=== PATIENT | female | born 1985 | race Caucasian/White ===

== ENCOUNTER 2025-01-06 15:10 | Emergency (ER) | payer MEDICAID, SELFPAY ==
[2025-01-06 15:13] VITALS: BP 121/72; PULSE 141; RESP 16; TEMP 37.1; O2SAT 98
[2025-01-06 15:36] VITALS: PULSE 141; RESP 16; TEMP 37.1
[2025-01-06 15:38] LABS: Bilirubin Negative (Negative); Blood Moderate (Negative); Clarity Clear (Clear); Glucose Negative (Negative); Ketones Negative (Negative); Leukocyte Esterase Negative (Negative); Nitrite Negative (Negative); Urobilinogen 0.2 mg/dL (Up to 0.2)
--- NOTE | 2025-01-06 15:38 | ED.GENADUL_ITS ---
Discharge Plan Disposition Patient Disposition: Home Condition: Stable Discharge Details Clinical Impression: Pharyngitis, streptococcal Primary Care Provider: Unknown,Unknown ED Provider: Abbe Smith Home Meds and New Rx's Prescriptions: New amoxicillin 875 mg tablet 875 mg PO BID 10 Days Qty: 19 0RF Discharge Instructions Additional Instructions: You are positive for strep. Follow-up with your primary care provider if not improving within a week. If you feel more ill or have severe worsening pain or inability to swallow liquids return to the emergency department for reevaluation HPI General Mode of arrival: EMS . Date/Time Provider Initiated Documentation: 01/06/25 15:12 . Limitations to Documentation: no limitations . Information obtained by: patient . History of Present Illness 39 year old F presents to the emergency department with the chief complaint of fever, described as moderate, Patient started experiencing this day(s) (2) and it h as been constant. other things that improve symptom(s), (tylenol) No exacerbating factors reported . Patient notes fever/chills; denies chest pain, cough, nausea/vomiting and shortness of breath. Related Data Home Medications ?Medication ?Instructions ?Recorded ?Confirmed amoxicillin 875 mg tablet 875 mg PO BID 10 days #19 tabs 01/06/25 Previous Rx's ?Medication ?Instructions ?Recorded amoxicillin 875 mg tablet 875 mg PO BID 10 days #19 tabs 01/06/25 Allergies Allergy/AdvReac Type Severity Reaction Status Date / Time No Known Allergies Allergy Unverified 01/06/25 15:21 General Stated Complaint: Fever ANDREI: 3 Review of Systems All systems reviewed & are unremarkable except as noted in HPI and below Constitutional Constitutional: Reports chills and Reports fever(s) ENT Ears, Nose, Mouth, and Throat: Reports sore throat Cardiovascular Cardiovascular: Denies chest pain and Denies dyspnea Respiratory Respiratory: Denies cough and Denies dyspnea Gastrointestinal Gastrointestinal: Denies abdominal pain, Denies nausea and Denies vomiting Psychiatric Psychiatric: Denies depression Exam Const General: no acute distress Orientation: alert HENMT Head: normal to inspection Ears: external ears normal General nose exam: external nose normal Mouth: moist mucous membranes Throat: uvula midline and posterior oropharynx abnormal erythema; no exudates Eyes General: appearance normal, both eyes and all related structures Neck Neck: normal visual inspection Resp Effort & Inspection: normal respiratory effort and able to speak in complete sentences Auscultation: clear to auscultation bilaterally Cardio Jugular venous pressure: no JVD Rate: regular rate Heart Sounds: no murmurs GI Palpation: soft and nontender Skin General skin exam: no rashes or lesions noted Neuro General: patient alert and patient oriented x3 Extrem General: normal to inspection Psych Mental Status: mental status grossly normal Course Vital Signs Vital signs: Vital Signs Temperature 37.1 C 01/06/25 15:13 Pulse 141 H 01/06/25 15:13 Respiratory Rate 16 01/06/25 15:13 Blood Pressure 121/72 01/06/25 15:13 Pulse Oximetry 98 01/06/25 15:13 Temperature 37.1 C 01/06/25 15:36 Temperature Source Oral 01/06/25 15:36 Pulse 141 H 01/06/25 15:36 Respiratory Rate 16 01/06/25 15:36 Blood Pressure 121/72 01/06/25 15:13 Blood Pressure Position Sitting 01/06/25 15:13 Pulse Oximetry 98 01/06/25 15:13 Oxygen Delivery Method Room Air 01/06/25 15:13 Oxygen Flow Rate 0 01/06/25 15:13 Pain Level 0 01/06/25 15:36 Lab/Test Results Lab/Test Results: POC- Test(urine) Negative Medical Decision Making 39-year-old female who states has a history of POTS and PTSD, denies any smoking, alcohol or drug use, comes in with 1 day of intermittent fevers to 103 at goes away with Tylenol. She says yesterday she had some left flank pain and cloudy urine. That has resolved. She has a sore throat as well, denies any difficulty breathing or swallowing, no cough, no rashes. She is well-appearing on exam. She does have a heart rate of 140 and states that her heart rate does get elevated when she is sick or having episodes of her POTS or PTSD. She has erythematous posterior pharynx with a midline uvula. No exudates. No submandibular swelling or pain over the hyoid restricted neck movements. I will obtain a strep test and also a Fluvid test. Will also obtain CBC, CMP, procalcitonin and UA and reassess. Given lack of cough I do not feel x-ray is indicated. She has no findings on exam to suggest retropharyngeal abscess, epiglottitis or peritonsillar abscess Patient is positive for strep and otherwise unremarkable lab work. Primary MA exam is in 100. Will start amoxicillin and have her follow-up with her PCP if not improving and return precautions given Differential Diagnosis Differential Diagnosis: Strep throat, pyelonephritis, COVID Quality:SDOH Health Related Social Needs: No Data to Display PFSH All Active Problems (Updated 01/06/25 @ 17:21 by Abbe Smith MD) Pharyngitis, streptococcal (Acute) Social History Smoking/Tobacco Use Status: Never Smoking risk assessment performed?: Yes Alcohol Intake: never Drug use: Never Housing: homeless Do you feel safe at home: Yes Do you feel safe in your relationship?: Yes
[2025-01-06 15:49] LABS: Abs Immature Grans 0.06 10^3/uL (0.0-0.06); Absolute Basophil Count 0.05 10^3/uL (0.0-0.2); Absolute Lymphocyte Count 1.72 10^3/uL (1.2-3.4); Basophils % 0.4 %; Eosinophils % 0.1 %; HCT 38.8 % (36.0-46.0); HGB 12.6 g/dL (11.2-15.7); Immature Grans % 0.4 %; Lymphocytes % 12.6 %; MCH 28.2 pg (27.0-33.0); MCHC 32.5 % (32.0-36.0); MCV 87 fL (80-95); MPV 9.4 fL (8.0-11.0); Monocytes % 8.8 %; Neutrophils % 77.7 %; Platelet Count 234 10^3/uL (130-400); RBC 4.47 10^6/uL (3.93-5.22); RDW 12.7 % (11.7-14.6); RDW-SD 39.9 fL; WBC 13.69 10^3/uL (4.4-10.8)
[2025-01-06 15:51] LABS: Bacteria Few HPF (Negative); C & S Indicated? No; Casts Negative LPF (Negative); Crystals Few Amorphous HPF (Negative); Epithelial Cells Few HPF (Negative); Mucus Negative (Negative); Other Cells Negative (Negative); WBC Negative HPF (0-5)
[2025-01-06 15:52] LABS: Absolute Eosinophil Count 0.01 10^3/uL (0.0-0.7); Absolute Neutrophil Count 10.64 10^3/uL (1.2-6.7)
[2025-01-06] MEDS: Normal Saline 1,000 ML 1000 ML IV (16:01)
[2025-01-06 16:11] LABS: COVID-19 PCR Negative (Negative); Influenza A PCR Negative (Negative); Influenza B PCR Negative (Negative); RSV PCR Negative (Negative)
[2025-01-06 16:12] LABS: Source Nasopharynx
[2025-01-06 16:24] LABS: ALT 27 U/L (14-59); AST 15 U/L (15-37); Albumin 3.7 g/dL (3.4-5.0); Alkaline Phosphatase 65 U/L (46-116); BUN 4 mg/dL (7-18); Bilirubin, Total 0.3 mg/dL (0.2-1.0); CREATININE 0.8 mg/dL (0.55-1.02); Chloride 104 mmol/L (98-107); Estimated GFR 97.26 (mL/min/1.73m2); Glucose 126 mg/dL (74-106); Potassium 3.3 mmol/L (3.5-5.1); Sodium 141 mmol/L (136-145); Total Protein 7.6 g/dL (6.4-8.2)
[2025-01-06 16:32] LABS: Procalcitonin < 0.10 ng/mL
[2025-01-06] MEDS: Amoxicillin 875 MG TAB PO (18:13)
[2025-01-06 18:16] VITALS: BP 128/77; PULSE 82; RESP 14; O2SAT 98
== END 2025-01-06 18:21 | disposition home or self-care (01) ==
PROVIDERS: Emergency Provider Emergency Medicine
DX: J02.0 Streptococcal pharyngitis (principal)
CPT/HCPCS: 80053; 84145; 87426; 87637; 87880; 96360; 99284; 81003; 81015; 83735; 85025; 99283